=== PATIENT | female | born 1990 | race Two or more races ===

== ENCOUNTER 2024-01-24 10:45 | Outpatient (CLI) | payer OTHER | END 2024-01-24 10:50 | disposition home or self-care (01) | LOC: PRENATAL 10:45 | PROVIDERS: ATTEND Obstetrics & Gynecology Maternal & Fetal Medicine | DX: O44.00 Complete placenta previa NOS or without hemorrhage, unspecified trimester (principal); O36.60X0 Maternal care for excessive fetal growth, unspecified trimester, not applicable or unspecified; O40.1XX0 Polyhydramnios, first trimester, not applicable or unspecified; Z3A.30 30 weeks gestation of pregnancy ==

== ENCOUNTER 2024-03-05 10:34 | Outpatient (CLI) | payer OTHER | END 2024-03-05 10:36 | disposition home or self-care (01) | LOC: PRENATAL 10:34 | PROVIDERS: ATTEND Obstetrics & Gynecology Maternal & Fetal Medicine | DX: O26.849 Uterine size-date discrepancy, unspecified trimester (principal); O36.8199 Decreased fetal movements, unspecified trimester, other fetus; O36.60X0 Maternal care for excessive fetal growth, unspecified trimester, not applicable or unspecified; O40.1XX0 Polyhydramnios, first trimester, not applicable or unspecified; Z3A.36 36 weeks gestation of pregnancy ==